=== PATIENT | female | born 1985 | race Two or more races ===

== ENCOUNTER 2017-06-26 01:13 | Inpatient (IN) | payer OTHER ==
[2017-06-26] MEDS ORDERED: Phenaphthazine-PH Test Paper VI ONE (01:55)
[2017-06-26 02:12] VITALS: BMI 26.6
[2017-06-26] MEDS ORDERED: Lactated Ringer's 1,000 ML IV SCH (02:15)
[2017-06-26 04:03] LABS: BASO % 0.2 % (0.0-2.0); EOS # 0.1 K/uL (0.0-0.7); EOS % 0.6 % (0.0-4.0); HEMATOCRIT 35.2 % (34.0-47.0); LYMPH # 1.6 K/uL (1.0-4.3); LYMPH % 14.3 % (20.0-40.0); MEAN CELL VOLUME 91.2 fl (81.0-99.0); MEAN CORPUSCULAR HEMOGLOBIN 30.4 pg (27.0-31.0); MEAN CORPUSCULAR HGB CONC 33.4 g/dL (33.0-37.0); MEAN PLATELET VOLUME 8.4 fl (7.2-11.7); MONO # 0.8 K/uL (0.0-0.8); MONO % 7.3 % (0.0-10.0); NEUT # 8.6 K/uL (1.8-7.0); NEUT % 77.6 % (50.0-75.0); NRBC % 0.1 % (0.0-0.0); RED CELL DISTRIBUTION WIDTH 14.2 % (11.5-14.5); WHITE BLOOD COUNT 11.1 K/uL (4.8-10.8)
[2017-06-26] MEDS ORDERED: Oxytocin 30 UNITS in Sodium Chloride 0.9% 500 ML IV SCH ×2 (07:45→16:30)
--- NOTE | 2017-06-26 07:56 | OBADHP ---
Datetime: 06/26/2017 02:33 Admit Comment, IP Provider: CC: "I broke my water" HPI: 32YO @ 39.6 wks IUP presents to [facility] for suspected ROM. Per pt, around 12:30 she started feeling irregular ctx, within half an she had a large gush of fluid per vagina. Fluid was clear, and pooled on the floor. +FM, occasional ctx, +LOF, no VB. ObHx: primigravida GynHx: denies hx of STIs, normal pap PMH: denies SurgH: denies FH: denies SH: , denies ETOH, illicit drug use and smoking Allergies: NKDA Meds: PNV and Iron PE: vitals: stable GEN: NAD Cardio: S1S2, no M/G/R Resp: vesicular breathing b/l Abdomen: gravid, BS+, NT Neuro: AAO x 3 Ext: no edema, NT SSE: grossy ruptured, positive for pooling-clear fluid noted; Nitrazine pos Cervx: 1cm/high Bedside u/s: vertex presentation Assessment/Plan: 32 YO @ 39.6 wks IUP is grossly ruptured, and in early labor. GBS neg. -will admit pt to L_D -continue monitor -VS -blood work -fluids -consult anesthesiology -will continue to monitor labor progression Case discussed with attending, Dr. David Lee, PGY I OB attending addendum: Patient seen and examined by me. Agree with above assessment and plan. Begin augmentation with Pitocin. Pelvic Type - PN: Adequate Extremities - PN: Normal Abdomen - PN: Normal Back - PN: Not Done Breast - PN: Not Done Lungs - PN: Normal Heart - PN: Normal Thyroid - PN: Not Done Neurologic - PN: Normal HEENT - PN: Normal General - PN: Normal FHR - Baseline A Provider: 130 Membranes, Provider: Ruptured Pool Provider: Positive Nitrazine Provider: Negative Vital Signs Provider: Reviewed; Within Normal Limits IP Chief Complaint: Suspected ruptured membranes NICHD Variability Prov Fetus A: Moderate 6-25bpm NICHD Accel Fetus A IP Provider: 15X15 FHR Category Provider Fetus A: Category I Dilatation, Provider: 1cm Station, Provider: high Genitourinary Exam: Normal DTRs - PN: Not Done EGA AdmitDate IP: 39.6 IP Adm Impression: Term, intrauterine IP Admit Plan: Admit to unit; Initiate labor protocol Datetime: 06/26/2017 02:19 Amniotic Fluid Color, Provider: Clear Effacement, Provider: thick
[2017-06-26] MEDS ORDERED: Oxytocin 30 UNITS in Sodium Chloride 0.9% 500 ML IV ONE (08:24)
[2017-06-26] MEDS: Lactated Ringer's 1,000 ML IV SCH ×2 (08:45→09:40)
[2017-06-26] MEDS ORDERED: Nalbuphine 20 mg/ml Inj (1 ml) IVP PRN (10:51)
--- NOTE | 2017-06-26 11:02 | OBPN ---
Datetime: 06/26/2017 09:30 IP Progress Impression: Normal progression of labor IP Informed Consent Obtain: Vaginal Delivery IP Procedures: Sterile Vag Exam IP Progress Plan: Continue present management Contraction Comments Provider: q 2-5 FHR - Baseline A Provider: 150 IP Progress Note Comment: Patient progressing well, patient now 3cm dilated. Does not want anything for pain. WIll allow for PO liquids and then will restart Pitocin for augmentation A/P 1. Patient now 3cm, continue current management 2. CEFM and TOCO 3. Patient offered IV pain medication, Nitrous and epidural for pain management 4. F/U as needed Vital Signs Provider: Reviewed; Within Normal Limits NICHD Accel Fetus A IP Provider: 15X15 NICHD Variability Prov Fetus A: Moderate 6-25bpm Dilatation, Provider: 3 Effacement, Provider: 70 Station, Provider: -2 NICHD Decel Fetus A IP Provider: Early Datetime: 06/26/2017 02:33 Pool Provider: Positive Nitrazine Provider: Negative Membranes, Provider: Ruptured Presentation-Admit: Vertex FHR Category Provider Fetus A: Category I Datetime: 06/26/2017 02:19 Amniotic Fluid Color, Provider: Clear
[2017-06-26] MEDS ORDERED: Fentanyl/Bupivacaine HCl 250 ML EPI ONE (11:59)
[2017-06-26] MEDS ORDERED: Bupivacaine HCl 0.25% PF (10 ml) Inj ONE (11:59)
[2017-06-26] MEDS ORDERED: Lidocaine 1% Inj (20ml) ONE (14:41)
--- NOTE | 2017-06-26 15:06 | OBPN ---
Datetime: 06/26/2017 14:42 IP Progress Impression: Normal progression of labor IP Informed Consent Obtain: Vaginal Delivery IP Procedures: Sterile Vag Exam IP Progress Plan: Continue present management Contraction Comments Provider: q 2 mins FHR - Baseline A Provider: 150 IP Progress Note Comment: Patient comfortable s/p epidural VE=10/100/+2 ZAG=[id number] mod tashi, +accels, +early decelerations TOCO = ctxing q 2 mins A/P 1. Patient in second stage of labor. Will wait for increased maternal sensation before starting to push 2. CEFM and TOCO 3. Re-evaluate as needed Vital Signs Provider: Reviewed; Within Normal Limits NICHD Accel Fetus A IP Provider: 15X15 NICHD Variability Prov Fetus A: Moderate 6-25bpm Dilatation, Provider: 10 Effacement, Provider: 100 Station, Provider: 2 NICHD Decel Fetus A IP Provider: Early
[2017-06-26] MEDS ORDERED: Benzocaine/Menthol SPRAY TOP PRN (16:21)
--- NOTE | 2017-06-26 16:32 | OBDS ---
DELIVERY PERSONNEL Nurse Chief Accountant Certified: elizabeth Delivery Doctor: Zay Lu MD Scrub Nurse: elizabeth Payment Rep: Solange Marshall RN Anesthesiologist: Tani Bravo MD Wharf Tally Clerk: elizabeth Resident: elizabeth MATERNAL INFORMATION Delivery Anesthesia: Epidural Medications in Delivery: pitocin Placenta Cultured: No Maternal Complications: None Provider Comments: of live female infant over intact perineum in SUNSHINE presentation, followed by shoulders and rest of , 6lbs 8oz, 9/9, mouth and nose suctioned, cord blood collection obtained and cord tissue, cord blood obtained, placenta delivered spontaneously, fundus firm, vaginal lacerat ion 3a, repaired with 2-0 vicryl suture in interrupted and continous fashion, pt otherwise tolerated procedure well, [id number] LABOR SUMMARY EDC: 06/27/2017 00:00 No. Babies in Womb: 1 Attempted: No Labor Anesthesia: Epidural LABOR INFORMATION Reason for Induction: Not Applicable Oxytocin: Augmentation Group B Beta Strep: Negative Antibiotics # of Doses: na Antibiotics Time of Last Dose: na Steroids Given: None Reason Steroids Not Administered: Not Applicable MEMBRANES Membranes Rupture Method: Spontaneous Rupture of Membranes: 06/26/2017 01:00 Length of Rupture (hrs): 14.73 Amniotic Fluid Color: Clear Amniotic Fluid Amount: Small Amniotic Fluid Odor: Normal STAGES OF LABOR Stage 3 hrs: 0 Stage 3 min: 8 VAGINAL DELIVERY Episiotomy: None BABY A INFORMATION Delivery Date/Time: 06/26/2017 15:44 Method of Delivery: Vaginal Born in Route : No : N/A Forceps: N/A Vacuum Extraction: N/A Shoulder Dystocia : No SHOULDER DYSTOCIA BABY A Delivery Date/Time: 06/26/2017 15:44 PRESENTATION/POSITION BABY A Presentation: Cephalic Cephalic Presentation: Vertex Breech Presentation: N/A PLACENTA INFORMATION BABY A Placenta Delivery Time : 06/26/2017 15:52 Placenta Method of Delivery: Spontaneous Placenta Status: Delivered SCORES BABY A Heart Rate 1 min: >100 bpm Resp Effort 1 min: Good Cry Reflex Irritability 1 min: Cough or Sneeze or Pulls Away Muscle Tone 1 min: Active Motion Color 1 min: Body [place], Extremities Blue SCORE 1 MIN: 9 Heart Rate 5 min: >100 bpm Resp Effort 5 min: Good Cry Reflex Irritability 5 min: Cough or Sneeze or Pulls Away Muscle Tone 5 min: Active Motion Color 5 min: Body [place], Extremities Blue SCORE 5 MIN: 9 INFANT INFORMATION BABY A Gestational Age at Delivery: 39.6 Gestational Status: Term Infant Outcome : Liveborn Condition : Stable Infant Sex: Female IDENTIFICATION/MEDS BABY A ID Band Number: [id number] ID Band Location: Left Leg; Left Arm WEIGHT/LENGTH BABY A Birthweight (gms): 2950 Weight (lb): 6 Infant Weight (oz): 8 CORD INFORMATION BABY A No. Cord Vessels: 3 Nuchal Cord : N/A Nuchal Cord Other: na True Knot: na Infant Cord pH Baby Arterial: na Cord pH Baby Venous: na Cord Blood Taken: Yes Banking/Donate Info: yes Infant Suction: Mouth
[2017-06-26] MEDS ORDERED: Ammonia 2% Inhalant ONE (18:18)
[2017-06-27 06:46] LABS: HEMATOCRIT 26.7 % (34.0-47.0); MEAN CELL VOLUME 92.1 fl (81.0-99.0); MEAN CORPUSCULAR HEMOGLOBIN 30.1 pg (27.0-31.0); MEAN CORPUSCULAR HGB CONC 32.7 g/dL (33.0-37.0); RED CELL DISTRIBUTION WIDTH 14.6 % (11.5-14.5); WHITE BLOOD COUNT 14.7 K/uL (4.8-10.8)
[2017-06-27] MEDS: Multivitamin With Minerals Tab PO SCH (09:05)
[2017-06-27] MEDS: Oxycodone/Acetaminophen 5/325 mg Tab PO PRN ×2 (09:09→17:16)
--- NOTE | 2017-06-27 17:54 | OBPPN ---
Datetime: 06/27/2017 17:35 PP Pain Prov: Within normal limits PP Nausea Prov: Denies PP Flatus Prov: Yes PP BM Prov: No PP Breasts Prov: Normal PP Heart Prov: Normal PP Lungs Prov: Normal PP Abdomen/Uterus Prov: Normal PP Lochia Prov: Normal PP Vulva/Perineum Prov: Normal PP CVA Tenderness Prov: Normal PP Extremities Prov: Normal PP C/S Incision Prov: Not Applicable PP Progress Prov: Normal PP Impression Prov: Normal progression PP Plan Prov: Continue present management PP Progress Note Prov: She feels fine. No dizziness. no SOB. Ambulating without difficulty. A: S/P Anemia - asymptomatic PLAN: anticiapte discharge in AM Vital Signs Provider PP: Reviewed; Within Normal Limits
[2017-06-27] MEDS ORDERED: Apap-Butalbital-Caffeine 325-50-40mg Tab PO PRN (18:40)
--- NOTE | 2017-06-27 23:46 | CP.PCM.CON ---
History of Present Illness - History of Present Illness History of Present Illness: Anesthesia Procedure Note Called by RN, patient has been experiencing positional headaches since this afternoon, roughly 24 hours after wet tap during Epidural. Discussed diagnosis and treatment options of post dural puncture headache with pt -- conservative medical treatment (which she has been receiving) vs epidural blood patch. R/B/ A explained. Pt wishes to proceed with epidural blood patch. Informed consent obtained. Lower back cleaned and draped. L4L5 area infiltrated with lido 1% for skin anesthesia. Touhy 17 used to find epidural space, NUBIA to air at 5cm. RN cleaned and draped arm and regan blood in sterile manner. Blood handed to me in 10cc aliquots. Pt stated headache started feeling better at around 15cc. Total volume given 20cc. Pt tolerated procedure well. Pt states pain is now 3-4 when it was over 7 before procedure. Pt visibly better, able to move better , not so gingerly as before. VSS, patient to be discharged tomorrrow if feeling better. Past Patient History - Past Social History Smoking Status: Never Smoked Meds Allergies/Adverse Reactions: Allergies Allergy/AdvReac Type Severity Reaction Status Date / Time No Known Allergies Allergy Verified 06/26/17 02:12 - Medications Medications: Current Medications Acetaminophen/Butalbital/Caffeine (Fioricet) 1 tab PO Q6 PRN PRN Reason: Headache Last Admin: 06/27/17 18:53 Dose: 1 tab Benzocaine/Menthol (Dermoplast) 1 sprays TOP PRN PRN PRN Reason: Perineal Discomfort Docusate Sodium (Colace) 100 mg PO BID [facility] Last Admin: 06/27/17 17:11 Dose: 100 mg Ibuprofen (Motrin Tab) 600 mg PO Q6 PRN PRN Reason: Pain, Mild (1-3) Last Admin: 06/27/17 15:24 Dose: 600 mg Multivitamins/Minerals (Therapeutic-M Tab) 1 tab PO DAILY [facility] Last Admin: 06/27/17 09:05 Dose: 1 tab Oxycodone/Acetaminophen (Percocet 5/325 Mg Tab) 1 tab PO Q4 PRN PRN Reason: Pain, moderate (4-7) Stop: 06/29/17 16:22 Last Admin: 06/27/17 17:16 Dose: 1 tab Results - Vital Signs Recent Vital Signs: Last Vital Signs Temp 98.4 F 06/26/17 18:22 Pulse 85 06/26/17 09:56 Resp 18 06/26/17 09:56 BP 125/87 06/26/17 09:56 Pulse Ox 98 06/26/17 09:56 - Labs Result Diagrams: 06/27/17 05:30 Labs: Laboratory Results - last 24 hr 06/27/17 05:30 WBC 14.7 H RBC 2.90 L Hgb 8.7 L D Hct 26.7 L MCV 92.1 MCH 30.1 MCHC 32.7 L RDW 14.6 H Plt Count 181
[2017-06-28] MEDS: Multivitamin With Minerals Tab PO SCH (09:36)
--- NOTE | 2017-06-28 15:55 | OBPPN ---
Datetime: 06/28/2017 15:51 PP Pain Prov: Within normal limits PP Nausea Prov: Denies PP Flatus Prov: Yes PP Breasts Prov: Not Done PP Heart Prov: Normal PP Lungs Prov: Normal PP Abdomen/Uterus Prov: Normal PP Lochia Prov: Not Done PP Vulva/Perineum Prov: Not Done PP CVA Tenderness Prov: Normal PP Extremities Prov: Normal PP Impression Prov: Normal progression PP Plan Prov: Discharge PP Progress Note Prov: Doing well d/c home f/u with [facility] 4-6 weeks Vital Signs Provider PP: Reviewed
--- NOTE | 2017-06-28 15:55 | OBDCSUM ---
Datetime: 06/28/2017 10:17 Discharged to, Provider: Home Follow up at, Provider: Laura Disch Instr Activity: Normal activity Disch Instr Diet: Regular Discharge Instructions, Provider: Routine instructions given Discharge Diagnosis, Provider: Term Delivered Discharge Time: 06/28/2017 15:10 Follow up in weeks, Provider: in 6 weeks Disch Referrals: None Contraception discussed, Prov: Yes Disch Activity Restrictions: No sexual activity; Nothing in vagina - [place], tampons, douche Discharge Comment, Provider: Doing well d/c home f/u with [facility] 4-6 weeks Contraception after Delivery: Undecided
[2017-06-28 19:27] VITALS: BP 118/74; PULSE 97; RESP 20; TEMP 98.8; O2SAT 99
== END 2017-06-28 15:10 | disposition home or self-care (01) | DRG 775 ==
LOC: H.EROB2 01:13 → H.L&D 02:14 → H.OB/GYN 18:30
PROVIDERS: ADMIT Obstetrics & Gynecology; ATTEND Obstetrics & Gynecology
PROC: 0UQGXZZ Repair Vagina, External Approach (ICD-10-PCS; principal; 2017-06-26)
PROC: 10E0XZZ Delivery of Products of Conception, External Approach (ICD-10-PCS; 2017-06-26)
PROC: 4A1HXCZ Monitoring of Products of Conception, Cardiac Rate, External Approach (ICD-10-PCS; 2017-06-26)
DX: O71.4 Obstetric high vaginal laceration alone (principal); O99.02 Anemia complicating childbirth; Z37.0 Single live birth; Z3A.39 39 weeks gestation of pregnancy